=== PATIENT | female | born 1980 | race Caucasian/White ===

== ENCOUNTER 2018-03-20 23:10 | Inpatient (IN) | payer MEDICAID ==
[2018-03-21 00:54] LABS: ADD MAN DIFF? NO
[2018-03-21 00:57] LABS: WHITE BLOOD COUNT 9.3 10^3/ul (4.8-10.8)
[2018-03-21 00:57] LABS: BASOPHIL # 0.1 10^3/ul (0.0-0.1); BASOPHILS % 0.5 % (0.0-2.0); EOSINOPHILS # 0.1 10^3/ul (0.0-0.5); EOSINOPHILS % 0.9 % (0.0-7.0); HEMATOCRIT 29.4 % (37.0-47.0); LYMPHOCYTES # 2.6 10^3/ul (0.8-2.9); LYMPHOCYTES % 27.5 % (15.0-51.0); MEAN CORPUSCULAR HEMOGLOBIN 31.1 pg (29.0-33.0); MEAN CORPUSCULAR VOLUME 91.3 fl (82.0-101.0); MEAN PLATELET VOLUME 10.9 fl (7.4-10.4); MONOCYTE # 0.5 10^3/ul (0.3-0.9); MONOCYTES % 5.7 % (0.0-11.0); NEUTROPHILS % 65.1 % (39.0-77.0); PLATELET COUNT 190 10^3/UL (140-415); RED BLOOD COUNT 3.22 10^6/ul (4.20-5.40)
[2018-03-21] MEDS ORDERED: LIDOCAINE 1% (MPF) 30 ML INJ INJ (01:00)
[2018-03-21] MEDS ORDERED: CARBOPROST 250 MCG INJ IM ×2 (01:00→12:00)
[2018-03-21] MEDS ORDERED: AMPICILLIN 2 GM/NS (PMX) 100 ML IV (01:00)
[2018-03-21] MEDS ORDERED: IBUPROFEN 600 MG TAB PO (01:00)
[2018-03-21] MEDS ORDERED: OXYTOCIN 30 UNITS/LR 500 ML IV ×2 (01:00→12:00)
[2018-03-21] MEDS ORDERED: BUTORPHANOL 2 MG INJ IV (01:00)
[2018-03-21] MEDS ORDERED: MISOPROSTOL 200 MCG TAB PR ×2 (01:00→12:00)
[2018-03-21] MEDS ORDERED: METHYLERGONOVINE 0.2 MG INJ IM ×2 (01:00→12:00)
[2018-03-21 01:20] LABS: INR 0.98; PROTIME 13.1 Sec (11.9-14.9)
[2018-03-21 01:21] LABS: PARTIAL THROMBOPLASTIN TIME 26.5 Sec (23.0-35.0)
[2018-03-21] MEDS: LACTATED RINGER'S 1,000 ML IV ×3 (03:36→07:50)
[2018-03-21] MEDS: ACCU-CHEK XX ×2 (03:51→14:31)
[2018-03-21] MEDS ORDERED: AMPICILLIN 2 GM/NS (PMX) 100 ML (05:15)
[2018-03-21] MEDS: AMPICILLIN 2 GM/NS (PMX) 100 ML IV (05:20)
[2018-03-21] MEDS ORDERED: FENTAnyl 2MCG/ML-ROPIV 0.2% 100 ML (06:54)
[2018-03-21] MEDS ORDERED: NALOXONE (0.4 MG/ML) INJ IV (07:00)
[2018-03-21] MEDS: FENTAnyl 2MCG/ML-ROPIV 0.2% 100 ML BAG EPI (07:50)
[2018-03-21] MEDS: AMPICILLIN 1 GM/NS (PMX) 50 ML IV (08:45)
[2018-03-21] MEDS: OXYTOCIN 30 UNITS/LR 500 ML IV ×2 (10:40→11:16)
[2018-03-21] MEDS ORDERED: ONDANSETRON 4 MG TAB PO (12:00)
[2018-03-21] MEDS ORDERED: DIPHENHYDRAMINE 25 MG CAP PO (12:00)
[2018-03-21] MEDS ORDERED: DIBUCAINE 1% 30 GM OINT TOP (12:00)
[2018-03-21] MEDS ORDERED: HYDROCODONE/APAP (5/325) TAB PO (12:00)
[2018-03-21] MEDS ORDERED: DIPHENHYDRAMINE 50 MG INJ IV (12:00)
[2018-03-21] MEDS ORDERED: ONDANSETRON 4 MG INJ IV (12:00)
[2018-03-21] MEDS ORDERED: MAGNESIUM HYDROXIDE 30ML CUP PO (12:00)
[2018-03-21] MEDS ORDERED: ACETAMINOPHEN 325 MG TAB PO ×2 (12:00)
[2018-03-21] MEDS ORDERED: GLUCAGON 1 MG INJ IM (13:00)
[2018-03-21] MEDS ORDERED: GLUCOSE GEL 15 GRAM TUBE PO ×2 (13:00)
[2018-03-21] MEDS ORDERED: GLUCOSE GEL 15 GRAM TUBE BUCCAL (13:00)
[2018-03-21] MEDS ORDERED: DEXTROSE 50% 50 ML SYRINGE IV ×2 (13:00)
[2018-03-21] MEDS: IBUPROFEN 800 MG TAB PO ×2 (13:13→18:02)
[2018-03-21] MEDS: LACTATED RINGER'S 1,000 ML IV* ×2 (15:55→19:51)
[2018-03-21] MEDS ORDERED: INSULIN REGULAR, HUMAN 100 UNIT/1 ML 3ML VIAL SC (17:05)
[2018-03-21] MEDS: HYDROCODONE/APAP (5/325) TAB PO (22:35)
[2018-03-21] MEDS: LANOLIN HPA 1 PKT TOP (22:35)
[2018-03-21] MEDS: SENNA/DOCUSATE NA (8.6MG/50MG) TAB PO (22:35)
[2018-03-22] MEDS: IBUPROFEN 800 MG TAB PO ×5 (00:12→23:40)
[2018-03-22] MEDS: LACTATED RINGER'S 1,000 ML IV* (03:51)
[2018-03-22] MEDS ORDERED: INSULIN REGULAR, HUMAN 100 UNIT/1 ML 3ML VIAL SC (07:05)
[2018-03-22] MEDS: ACCU-CHEK XX ×4 (08:09→21:32)
[2018-03-22 08:14] LABS: ADD MAN DIFF? NO
[2018-03-22 08:25] LABS: WHITE BLOOD COUNT 8.7 10^3/ul (4.8-10.8)
[2018-03-22 08:25] LABS: BASOPHIL # 0.1 10^3/ul (0.0-0.1); BASOPHILS % 0.6 % (0.0-2.0); EOSINOPHILS # 0.1 10^3/ul (0.0-0.5); EOSINOPHILS % 1.3 % (0.0-7.0); HEMATOCRIT 28.5 % (37.0-47.0); HEMOGLOBIN 9.6 g/dl (12.0-16.0); LYMPHOCYTES # 2.6 10^3/ul (0.8-2.9); LYMPHOCYTES % 30.4 % (15.0-51.0); MEAN CORPUSCULAR HGB CONC 33.7 g/dl (32.0-37.0); MEAN CORPUSCULAR VOLUME 91.9 fl (82.0-101.0); MEAN PLATELET VOLUME 11.1 fl (7.4-10.4); MONOCYTE # 0.5 10^3/ul (0.3-0.9); MONOCYTES % 5.5 % (0.0-11.0); NEUTROPHIL # 5.4 10^3/ul (1.6-7.5); PLATELET COUNT 171 10^3/UL (140-415); RED CELL DISTRIBUTION WIDTH 12.1 % (11.5-14.5)
[2018-03-22] MEDS: INSULIN REGULAR, HUMAN 100 UNIT/1 ML 3ML VIAL SC (21:40)
[2018-03-23] MEDS: IBUPROFEN 800 MG TAB PO ×2 (05:54→12:15)
[2018-03-23] MEDS: ACCU-CHEK XX ×3 (07:10→13:50)
[2018-03-23] MEDS: VARICELLA VACCINE LIVE/PF 1,350 UNIT/0.5 ML ML SC* (07:10)
[2018-03-23] MEDS: DIPHTH/TET/ACEL PERTUSS (ADULT) 0.5 ML VIAL IM* (08:46)
[2018-03-23] MEDS: SENNA/DOCUSATE NA (8.6MG/50MG) TAB PO (08:46)
[2018-03-23] MEDS: MEASLES,MUMPS,RUBELLA VACCINE INJ SC* (08:46)
[2018-03-23 15:20] LABS: RAPID PLASMA REAGIN NONREACTIVE (NR)
== END 2018-03-23 15:25 | disposition home or self-care (01) | DRG 807 ==
LOC: OBT 23:10 → L-D 23:55 → OBT 23:56 → L-D 23:56 → PP1 03-21 12:03
PROVIDERS: Obstetrics & Gynecology
PROC: 10D07Z6 Extraction of Products of Conception, Vacuum, Via Natural or Artificial Opening (ICD-10-PCS; principal; 2018-03-21)
DX: O24.429 Gestational diabetes mellitus in childbirth, unspecified control (principal); Z37.0 Single live birth; O76 Abnormality in fetal heart rate and rhythm complicating labor and delivery; O75.81 Maternal exhaustion complicating labor and delivery; O69.81X0 Labor and delivery complicated by cord around neck, without compression, not applicable or unspecified; O99.02 Anemia complicating childbirth; D64.9 Anemia, unspecified; Z3A.36 36 weeks gestation of pregnancy; Z23 Encounter for immunization
CPT/HCPCS: 62319; 76815; 82962; 85025; 85610; 85730; 86592; 86850; 86900; 86901; 90715; 99464

== ENCOUNTER 2018-06-06 07:15 | Day surgery (SDC) | payer MEDICAID ==
[2018-06-06 08:02] LABS: ADD MAN DIFF? NO
[2018-06-06 08:03] LABS: WHITE BLOOD COUNT 7.8 10^3/ul (4.8-10.8)
[2018-06-06 08:03] LABS: BASOPHIL # 0.1 10^3/ul (0.0-0.1); EOSINOPHILS # 0.3 10^3/ul (0.0-0.5); EOSINOPHILS % 3.6 % (0.0-7.0); HEMOGLOBIN 12.3 g/dl (12.0-16.0); LYMPHOCYTES # 2.8 10^3/ul (0.8-2.9); LYMPHOCYTES % 35.8 % (15.0-51.0); MEAN CORPUSCULAR HEMOGLOBIN 29.9 pg (29.0-33.0); MEAN CORPUSCULAR HGB CONC 33.2 g/dl (32.0-37.0); MEAN PLATELET VOLUME 10.1 fl (7.4-10.4); MONOCYTE # 0.4 10^3/ul (0.3-0.9); MONOCYTES % 5.5 % (0.0-11.0); NEUTROPHIL # 4.2 10^3/ul (1.6-7.5); NEUTROPHILS % 53.8 % (39.0-77.0); PLATELET COUNT 248 10^3/UL (140-415); RED BLOOD COUNT 4.11 10^6/ul (4.20-5.40); RED CELL DISTRIBUTION WIDTH 11.7 % (11.5-14.5)
[2018-06-06 08:11] LABS: ADD UMIC NO; UR ASCORBIC ACID NEGATIVE (NEGATIVE); UR BILIRUBIN (Dip) NEGATIVE (NEGATIVE); UR BLOOD (Dip) NEGATIVE (NEGATIVE); UR CLARITY SLIGHTLY CLOUDY (CLEAR); UR COLOR STRAW (YELLOW); UR GLUCOSE (Dip) NEGATIVE (NEGATIVE); UR KETONES (Dip) NEGATIVE (NEGATIVE); UR LEUKOCYTE ESTERASE (Dip) NEGATIVE Leu/ul (NEGATIVE); UR NITRITE (Dip) NEGATIVE (NEGATIVE); UR RBC 1 /HPF (0-5); UR SPECIFIC GRAVITY (Dip) 1.006 (1.003-1.030); UR SQUAMOUS EPITHELIAL CELL MANY /HPF (FEW); UR TOTAL PROTEIN (Dip) NEGATIVE (NEGATIVE); UR UROBILINOGEN (Dip) NEGATIVE (NEGATIVE); UR WBC 1 /HPF (0-5)
[2018-06-06 08:21] LABS: INR 1.01; PROTIME 13.4 Sec (11.9-14.9)
[2018-06-06 08:22] LABS: PARTIAL THROMBOPLASTIN TIME 26.9 Sec (23.0-35.0)
[2018-06-06] MEDS ORDERED: KETOROLAC 30 MG INJ IV ×2 (10:00→12:00)
[2018-06-06] MEDS ORDERED: DIPHENHYDRAMINE 50 MG INJ IV (10:00)
[2018-06-06] MEDS ORDERED: HYDROmorphONE 1 MG/5 ML IV SYRINGE IV ×3 (10:00)
[2018-06-06] MEDS ORDERED: FENTAnyl 50 MCG/ML VIAL IV ×3 (10:00)
[2018-06-06] MEDS ORDERED: OXYCODONE/ACETAMINOPHEN (5/325) TAB PO ×2 (10:00)
[2018-06-06] MEDS ORDERED: KETOROLAC 30 MG INJ (10:01)
[2018-06-06] MEDS ORDERED: ROPIVACAINE 0.5 % 30 ML VIAL (10:01)
[2018-06-06] MEDS ORDERED: MIDAZOLAM 1 MG/ML 2 ML INJ (10:01)
[2018-06-06] MEDS ORDERED: ROCURONIUM 50 MG INJ (10:01)
[2018-06-06] MEDS ORDERED: METOCLOPRAMIDE 10 MG INJ (10:01)
[2018-06-06] MEDS ORDERED: PROPOFOL 20 ML (10:01)
[2018-06-06] MEDS ORDERED: ONDANSETRON 4 MG INJ (10:01)
[2018-06-06] MEDS ORDERED: NEOSTIGMINE 3 MG/3 ML SYRINGE (10:36)
[2018-06-06] MEDS ORDERED: GLYCOPYRROLATE 0.4 MG INJ (10:36)
[2018-06-06] MEDS ORDERED: EPHEDrine 25 MG/5 ML SYG (10:49)
[2018-06-06] MEDS ORDERED: CEFAZOLIN 1 GM INJ (11:20)
[2018-06-06] MEDS: BUPIVACAINE 0.25%/EPI (SDV) 30 ML INJ (11:21)
[2018-06-06] MEDS: CEFAZOLIN 2 GM/50 ML (PMX) 50 ML IVPB ×2 (11:53)
[2018-06-06] MEDS: MEPERIDINE 25 MG INJ IV (11:54)
[2018-06-06] MEDS: ONDANSETRON 4 MG INJ IV (11:54)
== END 2018-06-06 13:50 | disposition home or self-care (01) ==
LOC: SDS 07:15
DX: Z30.2 Encounter for sterilization (principal); E11.9 Type 2 diabetes mellitus without complications
CPT/HCPCS: 58661; 71045; 81001; 81003; 82962; 84703; 85025; 85610; 85730; 88302; 93005